=== PATIENT | female | born 1940 | race Caucasian/White ===

== ENCOUNTER 2018-02-21 14:10 | Inpatient (IN) | payer OTHER, BC ==
[~2018-02-21] VITALS: Ht 157.5 cm; Wt 54.4 kg
--- NOTE | ~2018-02-21 | 2DMMODE ---
[facility] [address] [place] [address] 2 D/M-MODE ECHOCARDIOGRAM Name: JAMARCUSRAMON ORTIZ Room #: 405-P ADM IN M.R.#: [id number] Admission: 02/21/18 Attend Phys: Saroj Lim Discharge: Date of : 42 Date of Service: 02/24/18 0919 Report #: [id number] THIS REPORT FOR: //name// APPROVED REPORT Study performed: 02/24/2018 08:23:50 EXAM: Comprehensive 2D, Doppler, and color-flow Echocardiogram Patient Location: Echo lab Room #: 405 Status: routine BSA: 1.54 HR: 82 bpm BP: 155/63 mmHg Other Information Study Quality: Adequate Indications CVA/TIA Hypertension/HDD Echo Enhancing Agent Indication: Rule out Shunt Agent(s) / Amount(s) Used: Agitated Saline 7 cc 2D Dimensions RVDd: 25.72 mm LVEF(%): 64.51 (>50%) IVSd: 11.09 (7-11mm) LVOT Diam: 19.18 (18-24mm) LVDd: 39.66 mm PWd: 8.99 (7-11mm) Ascending Ao: 25.49 (22-36mm) LVDs: 25.89 (25-40mm) Aortic Root: 25.55 mm IVC: 13.00 mm Serna's LVEF: 64.51 % Volumes Left Atrial Volume (Systole) Single Plane 4CH: 24.50 mL Single Plane 2CH: 26.88 mL LA ESV Index: 18.00 mL/m2 Aortic Valve AoV Peak Simon.: 1.25 m/s AO Peak Gr.: 6.25 mmHg LVOT Max P.55 mmHg LVOT Max V: 0.94 m/s FLORIAN Vmax: 2.17 cm2 [facility] [place] [address] 2 D/M-MODE ECHOCARDIOGRAM Name: RAMON RICKETTS Room #: 405-P [facility] IN .R.#: [id number] Admission: 02/21/18 Attend Phys: Saroj Lim Discharge: Date of : 42 Date of Service: 02/24/18 0919 Report #: [id number] Mitral Valve E/A Ratio: 0.7 MV Decel. Time: 252.02 ms MV E Max Simon.: 0.64 m/s MV A Simon.: 0.87 m/s MV PHT: 73.09 ms IVRT: 115.34 ms Pulmonary Valve PV Peak Simon.: 0.98 m/s PV Peak Gr.: 3.85 mmHg Pulmonary Vein P Vein S: 0.60 m/s P Vein A: 0.28 m/s P Vein D: 0.35 m/s P Vein A Dur.: 92.3 msec P Vein S/D Ratio: 1.71 Tricuspid Valve TR Peak Simon.: 2.38 m/s TR Peak Gr.: 22.64 mmHg PA Pressure: 28.00 mmHg Left Ventricle The left ventricle is normal size. There is normal LV segmental wall motion. There is normal left ventricular wall thickness. The left ventricular systolic function is normal. The left ventricular ejection fraction is within the normal range. LVEF is 60-65%. Grade I - abnormal relaxation pattern. Right Ventricle The right ventricle is normal size. The right ventricular systolic function is normal. Atria The left atrium size is normal. No shunting by contrast bubble injection. The right atrium size is normal. Aortic Valve Aortic valve is calcified. Trace to mild aortic regurgitation. There is no aortic valvular stenosis. Mitral Valve The mitral valve is normal in structure. There is no mitral valve regurgitation noted. No evidence of mitral valve stenosis[place] [address] 2 D/M-MODE ECHOCARDIOGRAM Name: RAMON RICKETTS Room #: 405-P [facility] IN [facility]#: [id number] Admission: 02/21/18 Attend Phys: Saroj Lim Discharge: Date of : 42 Date of Service: 02/24/18 0919 Report #: [id number] The tricuspid valve is normal in structure. There is trace tricuspid regurgitation. Estimated PAP 28 mmHg. There is no pulmonary hypertension. Pulmonic Valve The pulmonary valve is normal in structure. There is no pulmonic valvular regurgitation. Great Vessels The aortic root is normal in size. IVC is normal in size and collapses >50% with inspiration. Pericardium There is no pericardial effusion. <Conclusion> The left ventricular systolic function is normal. There is normal LV segmental wall motion. LVEF is 60-65%. Grade I diatolic dysfunction No shunting by contrast bubble injection. Aortic valve is calcified, no stenosis. Trace to mild aortic regurgitation. The mitral valve is normal in structure. No mitral valve regurgitation There is trace tricuspid regurgitation. Estimated pulmonary arter pressure of 28 mmHg. There is no pericardial effusion. <ELECTRONICALLY SIGNED> By: Slick Dillard MD, FACC 02/24/18918 8 8 Slick Dillard MD, FACC /INF
--- NOTE | ~2018-02-21 | EKG ---
[address] [place] [address] ELECTROCARDIOGRAM REPORT Name: RAMON RICKETTS Room #: 405-P ADM IN M.R.#: [id number] Admission: 02/21/18 Attend Phys: Saroj Mendoza Discharge: Date of : 42 Report #: [id number] THIS REPORT FOR: //name// [facility] ED Test Date: 2018-02-21 Test Time: 14:27:08 Pat Name: RAMON RICKETTS Department: Room: 405 Gender: F [employer] Director: BERYL : 1940 Requested By: Deshawn Chowdary Order Number: [id number] MD: Slick Dillard Measurements Intervals [place] Rate: 88 P: 84 [place]: 145 QRS: 78 QRSD: 95 T: 58 QT: 394 QTc: 477 Interpretive Statements Sinus rhythm Borderline T abnormalities, anterior leads Borderline prolonged QT interval No previous ECG available for comparison Electronically Signed On 02-23-2018 13:54:07 CDT by Slick Dillard [email or web address] <ELECTRONICALLY SIGNED> By: Slick Dillard MD, [facility] 02/23/18 1354 D: [id number] Slick Dillard MD, FACC /EPI
--- NOTE | ~2018-02-21 | HC ---
[facility] [place] [address] CONSULTATION Name: RAMON RICKETTS Room #: 405-P [facility] IN M.R.#: [id number] Admission: 02/21/18 Attend Phys: Saroj Mendoza Discharge: 02/24/18 Date of : 42 Report #: [id number] THIS REPORT FOR: //name// CC: Saroj Wolf DATE OF SERVICE: 02/21/2018 HISTORY OF PRESENT ILLNESS: This is a 77-year-old female patient who woke up this morning with what looks like left facial weakness. She has gone to a mechanical oxidizer yesterday. They have given some steroids and she noticed weakness on the right side of the face, which is still there. She also had trouble with the right arm as I understood from her. The symptoms have significantly improved, but she still has weakness on the right side. There was no associated speech difficulty. REVIEW OF SYSTEMS: Indicate a hemorrhagic stroke about 5 years ago. She said she did have too much symptoms from that. She follows up with the mechanical oxidizer. She indicates that she had some stenting and she is on Plavix for that. She has a history of hypercholesterolemia and hypertension. I carried out the 14-point review of system in this patient and she denies any new eye, ENT, cardiac, respiratory, GI, , musculoskeletal, constitutional, dermatological, hematological, psychiatric, throat, allergic, endocrine symptom associated with present symptomatology, which is new and is not described above. PAST MEDICAL HISTORY: Positive for anxiety. FAMILY HISTORY: Negative for any early age stroke. SOCIAL HISTORY: She used to drink alcohol, but she does not drink any alcohol anymore. PHYSICAL EXAMINATION: The patient's examination indicates she is alert, she is responsive, she is oriented. Her speech, concentration, fund of knowledge and memory is at her baseline. Cranial nerve examination 2-12 indicates facial palsy on the left side where her left orbit and forehead is spared. She does not appear to be particularly weak on the left side. Cranial nerve examination 2-12 is otherwise unremarkable. I believe her strength, sensation, tone and reflexes are mostly symmetrical. She has no cerebellar sign. I could not have a very good look at the patient's fundus. She is thinly built individual who does not have any dysmorphic features of eyes, ears and face. Her vision and hearing looks adequate. Her pulses are, I believe, palpable, but she has no edema, cyanosis or jaundice. Her cardiac examinations appear unremarkable. Respiratory examination does not show any respiratory difficulty or rhonchi on either side. Blood pressure is 160/85, respirations 22, pulse is 81, and temperature is 97.9. [facility] [address] [place] [address] CONSULTATION Name: RAMON RICKETTS Room #: 405-P [facility] IN M.R.#: [id number] Admission: 02/21/18 Attend Phys: Saroj Mendoza Discharge: 02/24/18 Date of : 42 Report #: [id number] LABORATORY DATA: White count is 9.3. Sodium is trace low at 130. She did have a CT scan of the head, MRI of the brain and CT angiography. They were mostly unremarkable. 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 However, forehead and eye is not involved and hence the diagnosis cannot be certain. RECOMMENDATIONS: 1. This patient already got a dose of steroids. 2. Architect wants her to continue steroid for 10 days and I think that will also cover Cast's palsy if this patient has a Cast's palsy. 3. We will push oral fluids in this patient. 4. She is already on Plavix for her stent and that will cover the CVA also. 5. 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 I will defer to you if any evaluation and management of that need to be done. Thank you very much for this referral and we will follow this patient with you tomorrow and if you have any question, please feel free to contact me. <ELECTRONICALLY SIGNED> By: Micheal Buckley MD 02/27/18 1355 1804 27 Micheal Buckley MD /nt
[2018-02-21 14:14] VITALS: BP 157/58; BP 75/42
[2018-02-21] MEDS ORDERED: B-COMPLEX TABL0.4 MG PO (14:32)
[2018-02-21] MEDS ORDERED: ASPIR 8181 MG PO (14:32)
[2018-02-21] MEDS ORDERED: PLAVIX 75 MG TA75 M1 PO (14:33)
[2018-02-21] MEDS ORDERED: BUPROPION HCL150 M1 PO (14:33)
[2018-02-21] MEDS ORDERED: LOPRESSOR50 PO (14:34)
[2018-02-21] MEDS ORDERED: MELATONIN5 M1 PO (14:34)
[2018-02-21] MEDS ORDERED: ARICEPT 5 MG TAB5 MG PO (14:35)
[2018-02-21] MEDS ORDERED: PAXIL10 MG PO (14:35)
[2018-02-21] MEDS ORDERED: XANAX 0.25 MG0.25 MG PO (14:37)
[2018-02-21] MEDS ORDERED: PREDNISONE 10 M10 MG PO (14:40)
[2018-02-21 14:49] LABS: ABSOLUTE NEUTROPHILS 8.7 thou/uL (1.4-8.2); BASOPHILS 0.2 % (0.0-2.0); EOSINOPHILS 0.1 % (0.0-3.0); HEMATOCRIT 38.1 % (37.0-47.0); LYMPHOCYTES 4.8 % (24.0-44.0); MCH 31.4 pg (26.0-34.0); MCV 92.2 fL (80.0-100.0); MONOCYTES 1.5 % (1.0-8.0); PLATELET COUNT 438 thou/uL (150-400); POLYS 93.4 % (36.0-66.0); RBC 4.13 mil/uL (4.20-5.00); RDW 13.8 % (10.5-14.5); WBC 9.3 thou/uL (4.0-11.0)
[2018-02-21 14:57] LABS: POC CA IONIZED 4.4 mg/dL (4.5-5.3); POC CREATININE 0.9 mg/dL (0.6-1.3); POC HEMOGLOBIN 13.3 g/dL (12.0-15.0); POC POTASSIUM 4.3 mmol/L (3.5-5.1)
[2018-02-21 15:01] LABS: PROTIME 9.8 Seconds (9.3-11.4)
[2018-02-21] MEDS ORDERED: GRIS-PEG250 MG PO (15:04)
[2018-02-21 15:06] LABS: CREATININE 0.9 mg/dL (0.6-1.0); POTASSIUM 4.4 mmol/L (3.5-5.1)
[2018-02-21 15:11] LABS: ALBUMIN 3.5 g/dL (3.4-5.0); TOTAL BILIRUBIN 0.1 mg/dL (<0.1-1.0); TOTAL PROTEIN 7.4 g/dL (6.4-8.2)
[2018-02-21 15:55] LABS: URINE BILIRUBIN NEGATIVE (Negative); URINE BLOOD NEGATIVE (Negative); URINE CLARITY CLEAR; URINE COLOR YELLOW; URINE GLUCOSE-RANDOM* NEGATIVE (Negative); URINE KETONES NEGATIVE (Negative); URINE LEUKOCYTES-REFLEX NEGATIVE (Negative); URINE NITRITE-REFLEX NEGATIVE (Negative); URINE PROTEIN (DIPSTICK) NEGATIVE (Negative); URINE SPECIFIC GRAVITY <= 1.005 (1.005-1.035); URINE UROBILINOGEN 0.2 E.U./dl (0.2-1.0)
[2018-02-21 16:02] LABS: AMP/METHAMP Negative (Negative); BARBITURATES Negative (Negative); BENZODIAZEPINES Negative (Negative); COCAINE Negative (Negative); METHADONE Negative (Negative); OPIATES Negative (Negative); PCP Negative (Negative)
[2018-02-21 16:29] VITALS: BP 151/55
[2018-02-21 16:43] VITALS: BP 156/71
[2018-02-21 17:08] LABS: TSH 2.035 uIU/mL (0.358-3.740)
[2018-02-21 17:50] VITALS: BP 160/85
[2018-02-21 20:00] VITALS: BP 140/67
[2018-02-22 00:22] VITALS: BP 144/52
[2018-02-22 04:34] VITALS: BP 139/56
[2018-02-22 04:44] LABS: CHOLESTEROL 199 mg/dL (<200); HDL CHOLESTEROL 71 mg/dL (>40); LDL CHOLESTEROL 115 mg/dL (<100); TC:HDL 2.8 Ratio (Not establshd); TRIGLYCERIDE 68 mg/dL (<150); VLDL 14 mg/dL (<40)
[2018-02-22 04:48] LABS: SERUM ASSESSMENT Clear
[2018-02-22 07:30] VITALS: BP 161/51
[2018-02-22 16:20] VITALS: BP 137/73
[2018-02-22 20:29] VITALS: BP 137/47
[2018-02-23 05:43] VITALS: BP 161/57
[2018-02-23 07:41] VITALS: BP 151/53
[2018-02-23] MEDS ORDERED: LIPITOR 20 MG T20 M1 PO (10:41)
[2018-02-23] MEDS ORDERED: PREDNISONE 10 M10 MG PO (10:44)
[2018-02-23] MEDS ORDERED: ACYCLOVIR 400400 MG PO (10:51)
[2018-02-23 17:25] VITALS: BP 162/51
[2018-02-23 20:00] VITALS: BP 146/75
[2018-02-24 04:00] VITALS: BP 155/63
[2018-02-24 09:27] VITALS: BP 145/66
[2018-02-24] MEDS ORDERED: [UNRECOGNIZED DRUG - OTHER] (13:09)
[2018-02-24 13:46] VITALS: BP 145/66
[2018-02-24 14:13] VITALS: BP 145/66
== END 2018-02-24 15:10 | disposition home health service (06) | DRG 74 ==
LOC: ER 14:10 → 4N 16:11 → EROBS 16:11 → 4N 16:44 → ENTRNSPT 02-24 15:06 → EDTRNSPTSTS 02-24 15:09 → 4N 02-24 15:10
PROVIDERS: Emergency Medicine; Hospitalist; Psychiatry & Neurology Neuromuscular Medicine
DX: G51.0 Bell's palsy (principal); G45.9 Transient cerebral ischemic attack, unspecified; R47.81 Slurred speech; F41.9 Anxiety disorder, unspecified; R13.10 Dysphagia, unspecified; E78.5 Hyperlipidemia, unspecified; I10 Essential (primary) hypertension; Z87.891 Personal history of nicotine dependence; Z79.82 Long term (current) use of aspirin; Z79.899 Other long term (current) drug therapy
CPT/HCPCS: 10790